=== PATIENT | female | born 1995 | race Caucasian/White ===

== ENCOUNTER 2023-01-02 22:15 | Emergency (ER) | payer SELFPAY ==
[~2023-01-02] VITALS: Ht 167.6 cm; Wt 80.7 kg
[2023-01-02 22:27] VITALS: BP_SYST 116
--- NOTE | 2023-01-02 22:33 | NUR ---
Patient triaged and placed in waiting room. VSS and patient appears in no acute distress at this time. Accompanied by FRIEND, awaiting available bed, and MD notified of need for MSE.
--- NOTE | 2023-01-03 00:41 | NUR ---
Dr. ROSALES at bedside examining the patient.
[2023-01-03] MEDS ORDERED: KETOROLAC TROMETHAMINE 60 MG/2 ML VIAL IM ONE (00:45)
[2023-01-03] MEDS ORDERED: IBUP-1971 PO (01:02)
[2023-01-03 01:14] VITALS: BP_SYST 116
--- NOTE | 2023-01-03 01:14 | NUR ---
Patient given written and verbal discharge instructions and verbalizes understanding. ER MD discussed with patient the results and treatment provided. Patient in stable condition. ID arm band removed. Rx of IBUPROFEN given. Patient educated on pain management and to follow up with PMD. Pain Scale 0/10. Opportunity for questions provided and answered. Medication side effect fact sheet provided.
== END 2023-01-03 01:14 | disposition home or self-care (01) ==
LOC: SED 22:15
DX: R07.89 Other chest pain (principal); Z79.899 Other long term (current) drug therapy
CPT/HCPCS: 99283; 71045; 93005; 96372; J1885